=== PATIENT | female | born 1990 | race Caucasian/White ===

== ENCOUNTER → 2017-10-21 | Outpatient (CLI) | payer MEDICARE, OTHER ==
--- NOTE | 2017-10-21 13:43 | US ---
EXAMINATION TYPE: US pelvic complete DATE OF EXAM: 10/21/2017 COMPARISON: NONE CLINICAL HISTORY: R10.2 Pelvic and perineal Pain. Trying to get for 1 year TECHNIQUE: . Transabdominal sonographic images of the pelvis were acquired. Date of LMP: 10/17/2017 EXAM MEASUREMENTS: Uterus: 7.8 x 4.3 x 5.9 cm Endometrial Stripe: 1.1 cm Right Ovary: 2.2 x 1.4 x 1.4 cm Left Ovary: 2.1 x 1.7 x 2.0 cm 1. Uterus: Anteverted Possible arcuate uterus visualized 2. Endometrium: wnl 3. Right Ovary: Follicle visualized measuring 1.1 x 1.1 x 1.0 cm 4. Left Ovary: wnl 5. Bilateral Adnexa: wnl 6. Posterior cul-de-sac: wnl IMPRESSION: 1. Suspect arcuate uterus. 2. Functional right ovarian follicular cyst.
== END | disposition home or self-care (01) ==
LOC: RADUSWWP 13:02
PROVIDERS: ATTEND Internal Medicine
DX: N83.01 Follicular cyst of right ovary (principal)
CPT/HCPCS: 76856

== ENCOUNTER → 2022-03-14 | Outpatient (CLI) | payer MEDICARE, OTHER ==
--- NOTE | 2022-03-14 11:29 | XR ---
EXAMINATION TYPE: XR scapula LT DATE OF EXAM: 03/14/2022 COMPARISON: NONE HISTORY: Pain TECHNIQUE: 2 views submitted FINDINGS: Osseous structures intact. Visualized joint spaces. The left portion of the rib cage and le ft lung normal. IMPRESSION: No acute osseous abnormality.
--- NOTE | 2022-03-14 11:30 | XR ---
EXAMINATION TYPE: XR shoulder limited LT DATE OF EXAM: 03/14/2022 COMPARISON: NONE HISTORY: Pain TECHNIQUE: Two views are submitted. FINDINGS: The osseous structures are intact. There is no acute fracture or dislocation. The AC joint is maint ained. IMPRESSION: 1. No acute process.
== END | disposition home or self-care (01) ==
LOC: RADXRYALE 10:55
PROVIDERS: ATTEND Internal Medicine
DX: M25.512 Pain in left shoulder (principal)